=== PATIENT | male | born 2005 | race Caucasian/White ===

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

== ENCOUNTER 2023-06-13 12:22 | Observation (INO) | payer MEDICAID ==
[2023-06-13 14:12] LABS: BASOPHILS ABSOLUTE AUTO 0.03 K/uL (0.00-0.10); BASOPHILS PERCENT AUTO 0.1 % (0.1-1.3); EOSINOPHILS PERCENT AUTO 0.1 % (0.0-5.4); HEMOGLOBIN 15.5 g/dL (12.9-16.9); IMMATURE GRAN ABSOLUTE AUTO 0.08 K/uL (0.00-0.23); IMMATURE GRAN PERCENT AUTO 0.4 % (0.0-0.7); LYMPHOCYTES ABSOLUTE AUTO 1.47 K/uL (0.8-3.3); MEAN CORPUSCULAR HEMOGLOBIN 29.9 pg (31.6-35.5); MEAN CORPUSCULAR HGB CONC 35.2 g/dL (31.6-35.5); MEAN CORPUSCULAR VOLUME 84.8 fL (81.4-99.0); MONOCYTES ABSOLUTE AUTO 2.24 K/uL (0.20-0.90); MONOCYTES PERCENT AUTO 10.7 % (3.3-12.6); NEUTROPHILS ABSOLUTE AUTO 17.19 K/uL (1.0-7.6); NEUTROPHILS PERCENT AUTO 81.7 % (40.0-78.1); PLATELET COUNT,PLT 217 K/uL (130-375); RED BLOOD CELL COUNT 5.19 M/uL (4.14-5.76)
[2023-06-13 14:16] LABS: EOSINOPHILS ABSOLUTE AUTO 0.02 K/uL (0.00-0.40)
[2023-06-13] MEDS ORDERED: Ondansetron 4 MG/2 ML SDV IVPUSH ONE (14:24)
[2023-06-13] MEDS ORDERED: Sodium Chloride 0.9% 1,000 ML IV ONE (14:31)
[2023-06-13 14:33] LABS: A/G RATIO 1.1 (1.2-2.2); ALANINE AMINOTRANSFERASE,ALT 20 U/L (12-78); ALBUMIN 4.6 g/dL (3.4-5.0); ALKALINE PHOSPHATASE 103 U/L (46-116); ASPARTATE AMNIOTRANSFERASE,AST 17 U/L (15-37); BILIRUBIN TOTAL 1.9 mg/dL (0.2-1.0); BLOOD UREA NITROGEN,BUN 10 mg/dL (7-18); C-REACTIVE PROTEIN 11.22 mg/dL (0.0-0.3); CALCIUM 9.7 mg/dL (8.5-10.1); CARBON DIOXIDE,CO2 31 mmol/L (21-32); CHLORIDE,CL 97 mmol/L (100-108); ESTIMATED GFR 111 mL/min (>60); GLUCOSE RANDOM 99 mg/dL (74-106); POTASSIUM,K 4.1 mmol/L (3.6-5.2); PROTEIN TOTAL,TP 8.7 g/dL (6.4-8.2); SODIUM,NA 138 mmol/L (140-148)
[2023-06-13 14:34] LABS: ANION GAP 14.1 mmol/L (5.0-14.0)
[2023-06-13 14:55] LABS: APPEARANCE,URINE CLEAR (CLEAR); BILIRUBIN,URINE NEGATIVE (NEGATIVE); COLOR,URINE YELLOW (YELLOW); GLUCOSE,URINE NEGATIVE (NEGATIVE); KETONES,URINE NEGATIVE (NEGATIVE); LEUKOCYTE ESTERASE,URINE NEGATIVE (NEGATIVE); NITRITE,URINE NEGATIVE (NEGATIVE); OCCULT BLOOD,URINE SMALL (NEGATIVE); PROTEIN,URINE NEGATIVE (NEGATIVE); UROBILINOGEN,URINE 0.2 EU/dL (0.2-1.0)
[2023-06-13 15:06] LABS: AMORPHOUS SEDIMENT,URINE NOT SEEN; BACTERIA,URINE FEW; EPITHELIAL CELLS,URINE RARE; MUCUS,URINE RARE; WBC,URINE 0-5 (0-5)
[2023-06-13] MEDS ORDERED: HYDROmorphone 0.5 MG/0.5 ML Syringe IVPUSH ONE (16:55)
[2023-06-13] MEDS ORDERED: Naloxone 0.4 MG/ML SDV IVPUSH PRN ×2 (16:55→18:23)
[2023-06-13] MEDS ORDERED: Ampicillin/Sulbactam Na 3 GM in Sodium Chloride 0.9% 100 ML IV ONE (16:59)
[2023-06-13] MEDS ORDERED: Ondansetron 4 MG/2 ML SDV IV PRN (18:23)
[2023-06-13] MEDS ORDERED: HYDROmorphone 1 MG/ML Syringe IVPUSH PRN (18:23)
[2023-06-13] MEDS ORDERED: Sodium Chloride 0.9% 1,000 ML IV SCH (18:23)
[2023-06-13] MEDS ORDERED: Magnesium Hydroxide 400 MG/5 ML Susp 30 ML Cup PO PRN (18:23)
[2023-06-13] MEDS ORDERED: Sennosides/Docusate Sodium 50-8.6 MG Tab PO PRN (18:23)
[2023-06-13] MEDS ORDERED: Ondansetron 4 MG Tab.DIS PO PRN (18:23)
[2023-06-13] MEDS ORDERED: Melatonin 3 MG Tab PO PRN (18:23)
[2023-06-13] MEDS: oxyCODONE 5 MG Tab PO PRN (23:06)
[2023-06-13] MEDS: Ampicillin/Sulbactam Na 3 GM in Sodium Chloride 0.9% 100 ML IV SCH (23:41)
[2023-06-13] MEDS: Acetaminophen 325 MG Tab PO PRN (23:41)
[2023-06-14 04:34] LABS: HEMATOCRIT 42.8 % (38.4-49.7); HEMOGLOBIN 14.5 g/dL (12.9-16.9); MEAN CORPUSCULAR HEMOGLOBIN 29.4 pg (31.6-35.5); MEAN CORPUSCULAR HGB CONC 33.9 g/dL (31.6-35.5); MEAN CORPUSCULAR VOLUME 86.8 fL (81.4-99.0); RED BLOOD CELL COUNT 4.93 M/uL (4.14-5.76)
[2023-06-14 04:49] LABS: CALCIUM 9.1 mg/dL (8.5-10.1); CREATININE 1.1 mg/dL (0.8-1.3); EST CRCL DRUG DOSING (CG) 122.07 mL/min; POTASSIUM,K 4.3 mmol/L (3.6-5.2)
[2023-06-14 05:09] LABS: ANION GAP 11.3 mmol/L (5.0-14.0)
[2023-06-14] MEDS: Acetaminophen 325 MG Tab PO PRN (05:10)
[2023-06-14] MEDS: oxyCODONE 5 MG Tab PO PRN (05:10)
[2023-06-14] MEDS: Ampicillin/Sulbactam Na 3 GM in Sodium Chloride 0.9% 100 ML IV SCH ×4 (05:11→23:23)
[2023-06-14] MEDS ORDERED: Lidocaine 1% with EPINEPHrine 1:100,000 50 ML MDV ONE (06:49)
[2023-06-14] MEDS ORDERED: Bupivacaine 0.5% 50 ML MDV ONE (06:49)
[2023-06-14] MEDS ORDERED: Bupivacaine 0.5%/EPINEPHrine 1:200,000 50 ML MDV ONE (07:03)
[2023-06-14] MEDS ORDERED: HYDROmorphone 0.5 MG/0.5 ML Syringe IVPUSH PRN ×2 (07:12→11:00)
[2023-06-14] MEDS ORDERED: fentaNYL 250 MCG/5 ML SDV ONE ×2 (07:27→09:21)
[2023-06-14] MEDS ORDERED: Rocuronium 50 MG/5 ML Vial ONE (07:28)
[2023-06-14] MEDS ORDERED: Ondansetron 4 MG/2 ML SDV ONE (07:28)
[2023-06-14] MEDS ORDERED: Glycopyrrolate 0.2 MG/ML 5 ML MDV ONE (07:28)
[2023-06-14] MEDS ORDERED: Neostigmine Methylsulfate 1 MG/ML 5 ML Syringe ONE (07:28)
[2023-06-14] MEDS ORDERED: Dexamethasone 4 MG/ML SDV ONE (07:28)
[2023-06-14] MEDS ORDERED: Succinylcholine 200 MG/10 ML MDV ONE (07:28)
[2023-06-14] MEDS ORDERED: Propofol 200 MG/20 ML SDV ONE (07:28)
[2023-06-14] MEDS ORDERED: Ropivacaine 40 ML, dexAMETHasone 8 MG, EPINEPHrine 0.4 MG, Sodium Chloride 0.9% 37.6 ML NERVRT SCH ×4 (08:30)
[2023-06-14] MEDS ORDERED: Ketamine 23 MG in Sodium Chloride 0.9% 19.77 ML IV SCH (08:30)
[2023-06-14] MEDS ORDERED: Ketamine 500 MG/5 ML MDV IV SCH (08:30)
[2023-06-14] MEDS ORDERED: Lactated Ringers 1,000 ML ONE (08:57)
[2023-06-14] MEDS ORDERED: Cyclobenzaprine 10 MG Tab PO PRN (10:10)
[2023-06-14] MEDS ORDERED: Dextrose 5%-Lactated Ringers 1,000 ML IV SCH (10:15)
[2023-06-14] MEDS: Acetaminophen 500 MG Tab PO SCH ×3 (10:48→23:22)
[2023-06-14] MEDS: HYDROmorphone 2 MG Tab PO PRN ×3 (10:48→23:53)
[2023-06-14] MEDS ORDERED: Ondansetron 4 MG/2 ML SDV IVPUSH PRN (11:00)
[2023-06-14] MEDS ORDERED: HYDROmorphone 1 MG/ML Syringe IV PRN (11:00)
[2023-06-15] MEDS: Acetaminophen 500 MG Tab PO SCH (05:53)
[2023-06-15] MEDS: Ampicillin/Sulbactam Na 3 GM in Sodium Chloride 0.9% 100 ML IV SCH (05:54)
[2023-06-15] MEDS ORDERED: Magnesium Hydroxide 400 MG/5 ML Susp 30 ML Cup PO PRN (07:07)
[2023-06-15] MEDS ORDERED: Amoxicillin/Clavulanate K 875-125 MG Tab PO SCH (08:00)
== END 2023-06-15 09:46 | disposition home or self-care (01) ==
LOC: JP.ED 12:22 → JP.MS 17:38 → UNDOADMOB 17:38 → JP.MS 17:44 → INTOOBSV 06-14 09:35 → OBSVTOIN 06-14 09:35 → UNDODISOB 06-15 09:46
PROVIDERS: ADMIT Internal Medicine; ATTEND Internal Medicine
PROC: 0DTJ4ZZ Resection of Appendix, Percutaneous Endoscopic Approach (ICD-10-PCS; principal; 2023-06-14)
PROC: 0D9J4ZZ Drainage of Appendix, Percutaneous Endoscopic Approach (ICD-10-PCS; 2023-06-14)
PROC: 0T9B70Z Drainage of Bladder with Drainage Device, Via Natural or Artificial Opening (ICD-10-PCS; 2023-06-14)
DX: K35.33 Acute appendicitis with perforation, localized peritonitis, and gangrene, with abscess (principal); F17.210 Nicotine dependence, cigarettes, uncomplicated; Z20.822 Contact with and (suspected) exposure to COVID-19
CPT/HCPCS: 36415; 74176; 80048; 80053; 81001; 83605; 85025; 85027; 86140; 87070; 87075; 87077; 87186; 87205; 87635; 88304; 96361; 96365; 96366; 96375; 96376; 99285; A9270; G0378; J0171; J0295; J0330; J1100; J1170; J2405; J2704; J2710; J2795; J3010; J3490; J7030; J7120; J7121; 99222; U0002

== ENCOUNTER 2023-09-27 12:14 | Inpatient (IN) | payer MEDICAID ==
[2023-09-27] MEDS ORDERED: Sodium Chloride 0.9% 10 ML Syringe FLUSH PRN (13:04)
[2023-09-27] MEDS ORDERED: Sodium Chloride 0.9% 1,000 ML IV STA (13:04)
[2023-09-27] MEDS ORDERED: Ondansetron 4 MG/2 ML SDV IVPUSH ONE (13:05)
[2023-09-27] MEDS ORDERED: fentaNYL 100 MCG/2 ML SDV IVPUSH ONE (13:05)
[2023-09-27 13:17] LABS: BASOPHILS ABSOLUTE AUTO 0.04 K/uL (0.00-0.10); BASOPHILS PERCENT AUTO 0.2 % (0.1-1.3); EOSINOPHILS ABSOLUTE AUTO 0.06 K/uL (0.00-0.40); EOSINOPHILS PERCENT AUTO 0.3 % (0.0-5.4); HEMATOCRIT 41.5 % (38.4-49.7); HEMOGLOBIN 14.5 g/dL (12.9-16.9); IMMATURE GRAN ABSOLUTE AUTO 0.05 K/uL (0.00-0.23); IMMATURE GRAN PERCENT AUTO 0.3 % (0.0-0.7); LYMPHOCYTES ABSOLUTE AUTO 1.02 K/uL (0.8-3.3); LYMPHOCYTES PERCENT AUTO 5.9 % (11.4-47.7); MEAN CORPUSCULAR HEMOGLOBIN 29.8 pg (31.6-35.5); MEAN CORPUSCULAR HGB CONC 34.9 g/dL (31.6-35.5); MEAN CORPUSCULAR VOLUME 85.4 fL (81.4-99.0); MONOCYTES ABSOLUTE AUTO 1.04 K/uL (0.20-0.90); NEUTROPHILS ABSOLUTE AUTO 15.16 K/uL (1.0-7.6); NEUTROPHILS PERCENT AUTO 87.3 % (40.0-78.1); PLATELET COUNT,PLT 177 K/uL (130-375); RED BLOOD CELL COUNT 4.86 M/uL (4.14-5.76); WHITE BLOOD CELL COUNT,WBC 17.4 K/uL (3.2-11.0)
[2023-09-27] MEDS ORDERED: Sodium Chloride 0.9% 10 ML Syringe FLUSH ONE (13:30)
[2023-09-27] MEDS ORDERED: Iopamidol 612 MG/ML 100 ML Bottle IV SCH (13:30)
[2023-09-27] MEDS ORDERED: Sodium Chloride 0.9% 100 ML IV ONE (13:30)
[2023-09-27 13:38] LABS: A/G RATIO 1.3 (1.2-2.2); ALANINE AMINOTRANSFERASE,ALT 26 U/L (12-78); ALBUMIN 4.4 g/dL (3.4-5.0); ALKALINE PHOSPHATASE 95 U/L (46-116); ASPARTATE AMNIOTRANSFERASE,AST 20 U/L (15-37); BILIRUBIN TOTAL 1.1 mg/dL (0.2-1.0); BLOOD UREA NITROGEN,BUN 17 mg/dL (7-18); CARBON DIOXIDE,CO2 28 mmol/L (21-32); CHLORIDE,CL 102 mmol/L (100-108); EST CRCL DRUG DOSING (CG) 134.28 mL/min; ESTIMATED GFR 111 mL/min (>60); GLUCOSE RANDOM 91 mg/dL (74-106); POTASSIUM,K 4.3 mmol/L (3.6-5.2); PROTEIN TOTAL,TP 7.8 g/dL (6.4-8.2); SODIUM,NA 138 mmol/L (140-148)
[2023-09-27 13:45] LABS: ANION GAP 12.3 mmol/L (5.0-14.0)
[2023-09-27] MEDS ORDERED: HYDROmorphone 1 MG/ML Syringe IVPUSH ONE ×2 (14:46→15:09)
[2023-09-27] MEDS ORDERED: Lactated Ringers 1,000 ML IV ONE (15:03)
[2023-09-27] MEDS ORDERED: Piperacillin/Tazobactam 4.5 GM in Sodium Chloride 0.9% 100 ML IV ONE (15:34)
[2023-09-27 15:41] LABS: INFLUENZA A NAA NEGATIVE (NEGATIVE); INFLUENZA B NAA NEGATIVE (NEGATIVE); RESPIRATORY SYNCYTIAL VIR NAA NEGATIVE (NEGATIVE)
[2023-09-27 15:47] LABS: CORONAVIRUS COVID-19 NAA POSITIVE (NEGATIVE)
[2023-09-27] MEDS ORDERED: Bupivacaine 0.5%/EPINEPHrine 1:200,000 50 ML MDV ONE (17:00)
[2023-09-27 17:01] LABS: APPEARANCE,URINE CLEAR (CLEAR); BILIRUBIN,URINE NEGATIVE (NEGATIVE); COLOR,URINE YELLOW (YELLOW); GLUCOSE,URINE NEGATIVE (NEGATIVE); KETONES,URINE 15 mg/dL (NEGATIVE); LEUKOCYTE ESTERASE,URINE NEGATIVE (NEGATIVE); NITRITE,URINE NEGATIVE (NEGATIVE); OCCULT BLOOD,URINE NEGATIVE (NEGATIVE); PROTEIN,URINE NEGATIVE (NEGATIVE); UROBILINOGEN,URINE 0.2 EU/dL (0.2-1.0)
[2023-09-27 17:07] LABS: AMORPHOUS SEDIMENT,URINE NOT SEEN; BACTERIA,URINE FEW; EPITHELIAL CELLS,URINE RARE; MUCUS,URINE RARE; RBC,URINE NOT SEEN (0-5); WBC,URINE NOT SEEN (0-5)
[2023-09-27] MEDS ORDERED: fentaNYL 250 MCG/5 ML SDV ONE (17:14)
[2023-09-27] MEDS ORDERED: Glycopyrrolate 0.2 MG/ML 5 ML MDV ONE (17:15)
[2023-09-27] MEDS ORDERED: Neostigmine Methylsulfate 10 MG/10 ML MDV ONE (17:15)
[2023-09-27] MEDS ORDERED: Ondansetron 4 MG/2 ML SDV ONE (17:15)
[2023-09-27] MEDS ORDERED: Succinylcholine 200 MG/10 ML MDV ONE (17:15)
[2023-09-27] MEDS ORDERED: Rocuronium 50 MG/5 ML Vial ONE (17:15)
[2023-09-27] MEDS ORDERED: Propofol 200 MG/20 ML SDV ONE (17:15)
[2023-09-27] MEDS ORDERED: Dexamethasone 4 MG/ML SDV ONE (17:15)
[2023-09-27] MEDS ORDERED: Lactated Ringers 1,000 ML ONE (18:12)
[2023-09-27] MEDS ORDERED: Naloxone 0.4 MG/ML SDV IVPUSH PRN (19:47)
[2023-09-27] MEDS: Acetaminophen 1,000 MG in Premix Bag 1 BAG IV SCH (20:48)
[2023-09-27] MEDS: Dextrose 5%-Lactated Ringers 1,000 ML IV SCH (20:49)
[2023-09-27] MEDS: Piperacillin/Tazobactam 3.375 GM in Sodium Chloride 0.9% 50 ML IV SCH (22:41)
[2023-09-28] MEDS: Acetaminophen 1,000 MG in Premix Bag 1 BAG IV SCH ×4 (02:03→19:47)
[2023-09-28] MEDS: Piperacillin/Tazobactam 3.375 GM in Sodium Chloride 0.9% 50 ML IV SCH ×4 (03:14→22:45)
[2023-09-28 05:14] LABS: HEMATOCRIT 36.6 % (38.4-49.7); HEMOGLOBIN 12.6 g/dL (12.9-16.9); MEAN CORPUSCULAR HEMOGLOBIN 30.1 pg (31.6-35.5); MEAN CORPUSCULAR HGB CONC 34.4 g/dL (31.6-35.5); MEAN CORPUSCULAR VOLUME 87.6 fL (81.4-99.0); RED BLOOD CELL COUNT 4.18 M/uL (4.14-5.76); WHITE BLOOD CELL COUNT,WBC 18.8 K/uL (3.2-11.0)
[2023-09-28 05:37] LABS: CALCIUM 8.7 mg/dL (8.5-10.1); CREATININE 1.2 mg/dL (0.8-1.3); EST CRCL DRUG DOSING (CG) 111.9 mL/min; POTASSIUM,K 4.5 mmol/L (3.6-5.2)
[2023-09-28 05:38] LABS: ANION GAP 11.5 mmol/L (5.0-14.0)
[2023-09-28 05:42] LABS: INR 1.2; MAGNESIUM 1.8 mg/dL (1.8-2.4); PHOSPHORUS 4.1 mg/dL (2.5-4.9)
[2023-09-28] MEDS: Dextrose 5%-Lactated Ringers 1,000 ML IV SCH ×2 (06:05→14:48)
[2023-09-28] MEDS: Tamsulosin 0.4 MG Cap.ER PO SCH (11:04)
[2023-09-28] MEDS: oxyCODONE 5 MG Tab PO PRN ×3 (11:17→20:08)
[2023-09-28] MEDS: HYDROmorphone 0.5 MG/0.5 ML Syringe IVPUSH PRN (23:28)
[2023-09-29] MEDS: oxyCODONE 5 MG Tab PO PRN ×5 (00:07→17:05)
[2023-09-29] MEDS: Dextrose 5%-Lactated Ringers 1,000 ML IV SCH ×2 (00:10→09:28)
[2023-09-29] MEDS: Piperacillin/Tazobactam 3.375 GM in Sodium Chloride 0.9% 50 ML IV SCH ×4 (03:45→21:53)
[2023-09-29] MEDS: HYDROmorphone 0.5 MG/0.5 ML Syringe IVPUSH PRN ×2 (03:56→23:36)
[2023-09-29 04:52] LABS: HEMATOCRIT 35.1 % (38.4-49.7); HEMOGLOBIN 11.7 g/dL (12.9-16.9); MEAN CORPUSCULAR HEMOGLOBIN 29.5 pg (31.6-35.5); MEAN CORPUSCULAR HGB CONC 33.3 g/dL (31.6-35.5); MEAN CORPUSCULAR VOLUME 88.6 fL (81.4-99.0); RED BLOOD CELL COUNT 3.96 M/uL (4.14-5.76); WHITE BLOOD CELL COUNT,WBC 12.4 K/uL (3.2-11.0)
[2023-09-29 05:14] LABS: ANION GAP 6.2 mmol/L (5.0-14.0); CALCIUM 8.5 mg/dL (8.5-10.1); EST CRCL DRUG DOSING (CG) 134.28 mL/min; POTASSIUM,K 3.6 mmol/L (3.6-5.2)
[2023-09-29] MEDS: Acetaminophen 500 MG Tab PO SCH ×4 (05:35→23:44)
[2023-09-29] MEDS: Tamsulosin 0.4 MG Cap.ER PO SCH (09:25)
[2023-09-29] MEDS: Enoxaparin 40 MG/0.4 ML Syringe SUBCUT SCH (09:28)
[2023-09-29] MEDS ORDERED: Simethicone 125 MG Tab.Chew PO PRN (19:40)
[2023-09-29] MEDS: Ondansetron 4 MG/2 ML SDV IVPUSH PRN (20:21)
[2023-09-30] MEDS: oxyCODONE 5 MG Tab PO PRN ×3 (02:46→23:05)
[2023-09-30] MEDS: Dextrose 5%-Lactated Ringers 1,000 ML IV SCH ×3 (02:47→18:37)
[2023-09-30] MEDS: Acetaminophen 500 MG Tab PO SCH ×4 (05:11→23:05)
[2023-09-30] MEDS: Piperacillin/Tazobactam 3.375 GM in Sodium Chloride 0.9% 50 ML IV SCH ×4 (05:11→22:06)
[2023-09-30 05:59] LABS: HEMATOCRIT 39.2 % (38.4-49.7); HEMOGLOBIN 13.2 g/dL (12.9-16.9); MEAN CORPUSCULAR HEMOGLOBIN 29.9 pg (31.6-35.5); MEAN CORPUSCULAR HGB CONC 33.7 g/dL (31.6-35.5); MEAN CORPUSCULAR VOLUME 88.9 fL (81.4-99.0); RED BLOOD CELL COUNT 4.41 M/uL (4.14-5.76)
[2023-09-30 06:19] LABS: CALCIUM 8.8 mg/dL (8.5-10.1); EST CRCL DRUG DOSING (CG) 134.28 mL/min; POTASSIUM,K 3.5 mmol/L (3.6-5.2)
[2023-09-30 06:28] LABS: ANION GAP 12.5 mmol/L (5.0-14.0)
[2023-09-30 06:30] LABS: MAGNESIUM 1.7 mg/dL (1.8-2.4); PHOSPHORUS 3.7 mg/dL (2.5-4.9)
[2023-09-30] MEDS: Ondansetron 4 MG/2 ML SDV IVPUSH PRN (06:43)
[2023-09-30] MEDS ORDERED: Scopalamine 1mg/3day Transdermal Patch TRDERM PRN (07:33)
[2023-09-30] MEDS ORDERED: Potassium Chloride 10 MEQ in Premix Bag 1 BAG IV ONE (08:00)
[2023-09-30] MEDS ORDERED: Magnesium Sulfate/Water 2 GM in Premix Bag 1 BAG IV ONE (08:00)
[2023-09-30] MEDS: Tamsulosin 0.4 MG Cap.ER PO SCH (08:16)
[2023-09-30] MEDS: CHECK SCOPOLAMINE PATCH TOP SCH (08:33)
[2023-09-30] MEDS: Enoxaparin 40 MG/0.4 ML Syringe SUBCUT SCH (09:32)
[2023-10-01] MEDS: Dextrose 5%-Lactated Ringers 1,000 ML IV SCH ×2 (02:41→09:11)
[2023-10-01] MEDS: Piperacillin/Tazobactam 3.375 GM in Sodium Chloride 0.9% 50 ML IV SCH ×4 (04:36→22:01)
[2023-10-01] MEDS: Acetaminophen 500 MG Tab PO SCH ×4 (05:27→23:10)
[2023-10-01 05:45] LABS: HEMATOCRIT 33.4 % (38.4-49.7); HEMOGLOBIN 11.1 g/dL (12.9-16.9); MEAN CORPUSCULAR HEMOGLOBIN 29.4 pg (31.6-35.5); MEAN CORPUSCULAR HGB CONC 33.2 g/dL (31.6-35.5); MEAN CORPUSCULAR VOLUME 88.4 fL (81.4-99.0); RED BLOOD CELL COUNT 3.78 M/uL (4.14-5.76); WHITE BLOOD CELL COUNT,WBC 7.5 K/uL (3.2-11.0)
[2023-10-01 06:19] LABS: CALCIUM 9.2 mg/dL (8.5-10.1); EST CRCL DRUG DOSING (CG) 134.28 mL/min; POTASSIUM,K 3.5 mmol/L (3.6-5.2)
[2023-10-01 06:22] LABS: ANION GAP 8.5 mmol/L (5.0-14.0)
[2023-10-01] MEDS ORDERED: Potassium Chloride 10 MEQ in Premix Bag 1 BAG IV ONE (09:00)
[2023-10-01] MEDS: CHECK SCOPOLAMINE PATCH TOP SCH (09:21)
[2023-10-01] MEDS: Tamsulosin 0.4 MG Cap.ER PO SCH (09:21)
[2023-10-01] MEDS: Enoxaparin 40 MG/0.4 ML Syringe SUBCUT SCH (09:21)
[2023-10-01] MEDS: oxyCODONE 5 MG Tab PO PRN (23:10)
[2023-10-02] MEDS: Piperacillin/Tazobactam 3.375 GM in Sodium Chloride 0.9% 50 ML IV SCH ×2 (05:06→11:29)
[2023-10-02] MEDS: Acetaminophen 500 MG Tab PO SCH ×2 (05:49→15:20)
[2023-10-02 05:51] LABS: HEMOGLOBIN 11.2 g/dL (12.9-16.9); MEAN CORPUSCULAR VOLUME 85.8 fL (81.4-99.0); RED BLOOD CELL COUNT 3.73 M/uL (4.14-5.76); WHITE BLOOD CELL COUNT,WBC 10.2 K/uL (3.2-11.0)
[2023-10-02 05:59] LABS: CALCIUM 8.2 mg/dL (8.5-10.1); EST CRCL DRUG DOSING (CG) 134.28 mL/min; POTASSIUM,K 3.4 mmol/L (3.6-5.2)
[2023-10-02 06:09] LABS: MAGNESIUM 1.7 mg/dL (1.8-2.4)
[2023-10-02 06:22] LABS: ANION GAP 11.4 mmol/L (5.0-14.0)
[2023-10-02] MEDS ORDERED: Potassium Chloride 20 MEQ Tab.ER PO ONE (08:00)
[2023-10-02] MEDS ORDERED: Magnesium Sulfate/Water 2 GM in Premix Bag 1 BAG IV ONE (08:00)
[2023-10-02] MEDS: CHECK SCOPOLAMINE PATCH TOP SCH (08:04)
[2023-10-02] MEDS: Tamsulosin 0.4 MG Cap.ER PO SCH (08:04)
[2023-10-02] MEDS: Enoxaparin 40 MG/0.4 ML Syringe SUBCUT SCH (08:04)
[2023-10-02] MEDS ORDERED: Piperacillin/Tazobactam/Dext 3.375 GM in Premix Bag 1 BAG IV SCH (10:15)
[2023-10-02] MEDS: oxyCODONE 5 MG Tab PO PRN ×2 (10:46→15:21)
== END 2023-10-02 16:00 | disposition home or self-care (01) | DRG 356 ==
LOC: JP.ED 12:14 → JP.SDS 16:24 → JP.2SS 19:39
PROVIDERS: ADMIT Student in an Organized Health Care Education/Training Program; ATTEND Student in an Organized Health Care Education/Training Program
PROC: 0T9B70Z Drainage of Bladder with Drainage Device, Via Natural or Artificial Opening (ICD-10-PCS; 2023-09-27)
PROC: 0W9H40Z Drainage of Retroperitoneum with Drainage Device, Percutaneous Endoscopic Approach (ICD-10-PCS; principal; 2023-09-27 14:50)
DX: K35.33 Acute appendicitis with perforation, localized peritonitis, and gangrene, with abscess (principal); U07.1 COVID-19; F17.210 Nicotine dependence, cigarettes, uncomplicated; E87.6 Hypokalemia; E83.42 Hypomagnesemia; R33.9 Retention of urine, unspecified; Z90.49 Acquired absence of other specified parts of digestive tract
CPT/HCPCS: 0241U; 36415; 51701; 51702; 71046; 74177; 80048; 80053; 81001; 83605; 83690; 83735; 84100; 84145; 85018; 85025; 85027; 85610; 88304; 96365; 96375; 96376; 99285-25; A9270-GY; C1758; J0131; J0330; J1100; J1170; J1650; J2405; J2543; J2704; J2710; J3010; J3475; J3480; J3490; J7030; J7120; J7121; Q9967